=== PATIENT | female | born 1980 | race Caucasian/White ===

== ENCOUNTER 2019-08-09 09:32 | Emergency (ER) | payer MEDICAID ==
[~2019-08-09] VITALS: Ht 167.6 cm; Wt 100.2 kg
[2019-08-09 09:33] VITALS: BP 157/97
--- NOTE | 2019-08-09 09:40 | NUR ---
39 Y/O FEMALE PRESENTS TO ER WITH COUGH X 6 DAYS. PT STATES COUGH IS HACKING, NON-PRODUCTIVE. ALSO HAS HEADACHE, NAUSEA, SORE THROAT. DENIES BODY ACHES, VOMITING, DIARRHEA. STATES SHE TOOK MUCINEX LAST NIGHT, AND ROBITUSSIN AROUND 3 AM. DENIES LEAVING COUNTRY IN THE LAST 14 DAYS, OR BEING AROUND PERSON WITH ACTIVE LIMON VIRUS. LMP X 5 DAYS AGO. R/R EQUAL, AND UNLABORED, SIDERAIL X1, WILL CONTINUE TO MONITOR DENIES PMH NKDA
[2019-08-09 10:49] VITALS: BP 157/97
--- NOTE | 2019-08-09 10:50 | NUR ---
Patient discharged with v/s stable. Written and verbal after care instructions given and explained. Patient alert, oriented and verbalized understanding of instructions. Ambulatory with steady gait. All questions addressed prior to discharge. ID band removed. Patient advised to follow up with PMD. Rx of FLONASE, PROMETHAZINE given. Patient educated on indication of medication including possible reaction and side effects. Opportunity to ask questions provided and answered.
== END 2019-08-09 10:50 | disposition home or self-care (01) ==
LOC: MED 09:32
DX: J06.9 Acute upper respiratory infection, unspecified (principal); R03.0 Elevated blood-pressure reading, without diagnosis of hypertension
CPT/HCPCS: 99283